=== PATIENT | female | born 1950 | race Two or more races ===

== ENCOUNTER 2020-03-23 13:42 | Emergency (ER) | payer MEDICARE, OTHER ==
--- NOTE | 2020-03-23 14:01 | ER Document Report ---
ED Animal Bite - General Chief Complaint: Dog Bite Stated Complaint: DOG BITE/RIGHT LEG Time Seen by Provider: 03/23/20 13:48 Mode of Arrival: Ambulatory Information source: Patient Notes: 70-year-old female presented to ED for dog bite to the back of the right knee. She states that happened about 1230. She states she was taking a walk when her dog were chasing a person on a bicycle and then attacked her and bit her on the back of the knee. She states she did call the animal control and they were going to try to locate the dog. She states the dog looked healthy but she does not know the dog and does not know if his shots are up-to-date. She states she did not want the rabies immunization vaccines at this time. She states she was going to see if the animal control could find the dog first before deciding to take the rabies immunizations vaccine. I did tell her she needed to make a decision within the next 24 hours to ensure she does not get sick if the dog is rapid. Patient verbalized understanding of this. She states her pain to the back of the knee is a 2 out of 5 and can rest things. There is break in the skin. There is no lacerations but more abrasions. She decided she was going to get the rabies vaccine because she did not know if they were going to locate the dog and then she spoke with someone from her family and they state they have videos of the dog and animal control is trying to find him so she will wait till tomorrow to decide if she wants the vaccines. Constitutional: Negative for fever. HENT: Negative for sore throat. Eyes: Negative for visual changes. Cardiovascular: Negative for chest pain. Respiratory: Negative for shortness of breath. Gastrointestinal: Negative for abdominal pain, vomiting or diarrhea. Genitourinary: Negative for dysuria. Musculoskeletal: Negative for back pain. Skin: Skin abrasions to the back of the right knee Neurological: Negative for headaches, weakness or numbness. 10 point ROS negative except as marked above and in HPI. VITAL SIGNS: Within normal limits. GENERAL: No acute distress, non-toxic appearance. HEAD: Normal with no signs of head trauma. EYES: PERRLA, EOMI, conjunctiva normal, no discharge. EARS: Hearing grossly intact. NOSE: Normal. THROAT: Oropharynx is normal. NECK: Normal range of motion, no tenderness, supple, no lymphadenopathy, No adenopathy, no JVD. CHEST: Clear breath sounds bilaterally. No wheezes, rales, or rhonchi. CARDIAC: Regular rate and rhythm. S1 and S2, without murmurs, gallops, or rubs. VASCULAR: No Edema. Peripheral pulses normal and equal in all extremities. ABDOMEN: Normal and soft with no tenderness, no masses or pulsatile masses. GASTROINTESTINAL: Bowel sounds normal GENITOURINARY: Normal, No tenderness LYMPATHTIC: No lymphadenopathy noted. MUSCULOSKELETAL: Good range of motion of all major joints. Extremities without clubbing, cyanosis or edema. NEUROLOGICAL: Alert and oriented x 3. No focal sensory or strength deficits. Speech normal. Follows commands appropriately. PSYCHIATRIC: Normal Affect, judgement and mood. SKIN: Skin abrasions to the back of the right knee - HPI Location of injury: Other - Neck of the right knee Severity of injury: Bitten Onset: Just prior to arrival Quality of pain: Achy Pain Level: 2 Context of attack: "Unprovoked" attack Type of animal: Dog Appearance of animal: Appeared well Animal's immunizations: Unknown Animal captured or known: No Animal control notified: Yes Animal control form completed: Yes - Related Data Allergies/Adverse Reactions: No Known Allergies Allergy (Verified 03/23/20 13:59) Past Medical History - General Information source: Patient - Social History Smoking Status: Never Smoker Frequency of alcohol use: Rare Drug Abuse: None Lives with: Family Family History: Reviewed & Not Pertinent Patient has suicidal ideation: No Patient has homicidal ideation: No - Past Medical History Cardiac Medical History: Reports: Hx Hypercholesterolemia, Hx Hypertension Pulmonary Medical History: Reports: None EENT Medical History: Reports: None Neurological Medical History: Reports: None Endocrine Medical History: Reports: Hx Hypothyroidism Renal/ Medical History: Reports: None Malignancy Medical History: Reports: None GI Medical History: Reports: None Musculoskeletal Medical History: Reports None Skin Medical History: Reports None Psychiatric Medical History: Reports: None Traumatic Medical History: Reports: None Infectious Medical History: Reports: None Surgical Hx: Negative Past Surgical History: Reports: None - Immunizations Immunizations up to date: Yes Hx Diphtheria, Pertussis, Tetanus Vaccination: Yes - 2019 Review of Systems - Review of Systems Female Genitourinary: No symptoms reported Physical Exam - Vital signs Vitals: Temp Pulse Resp BP Pulse Ox 98.6 F 80 20 152/106 H 100 03/23/20 13:47 03/23/20 13:47 03/23/20 13:47 03/23/20 13:47 03/23/20 13:47 Course - Re-evaluation Re-evalutation: 03/23/20 14:33 Patient elected to not get the rabies vaccine and immunization at this time. She stated she would check with animal control and be back within 24 hours if they did not capture the animal. Rabies were not started today. Patient was started on Augmentin and discharged home with prescription for Augmentin she was given instructions on care of the wound. - Vital Signs Vital signs: Temp Pulse Resp BP Pulse Ox 98.6 F 80 20 152/106 H 100 03/23/20 13:47 03/23/20 13:47 03/23/20 13:47 03/23/20 13:47 03/23/20 13:47 Discharge - Discharge Clinical Impression: Animal bite right posterior knee Condition: Stable Disposition: HOME, SELF-CARE Additional Instructions: Animal Bites Animal bites are often heavily contaminated with bacteria. In spite of thorough cleansing and proper treatment, these wounds frequently become infected. Bite wounds of the hands are especially prone to complications. Bites are dressed, if possible. Large wounds may require suturing after internal cleansing. Because of infection risk, some large wounds must remain unstitched. Your doctor is trained to advise you on the best treatment for your bite. Call the doctor at once if the wound becomes red, swollen, warm, increasingly painful, or if it begins to drain. Danger signs also include red streaks up the involved extremity, swollen glands in the groin or under the arm, or fever and chills. The risk of rabies from domestic animals is very low. Bats, sick animals, and wild animals may expose you to rabies. The physician, or the health department, will inform you if you will need to receive the rabies vaccine. SOAP CLEANSING: Gently wash the wound daily using a mild soap (like Ivory, Phisoderm, Neutrogena). Use warm water, rubbing gently until all debris, ooze, and crusting have been washed from the wound. Allow to dry briefly (about 10 minutes) after cleaning. Repeat this cleansing at least three times a day for the first two days and then once or twice a day. ANTIBIOTIC OINTMENT PROTECTION: Your wounds are such that dressing them is not practical or optional. After cleansing, you should apply a thin coating of antibiotic ointment (Bacitracin, not Neosporin) to the wounds at least three times daily. This lessens infection risk, and may decrease the amount of scarring. Use a q-tip or dull butter knife, not your finger, to apply this ointment. Any debris or ooze which builds up in the ointment should be gently rubbed off with a sterile gauze pad. Harder crusting may need to be gently scrubbed off with a clean wash cloth with soap and warm water, perhaps applying a warm, wet wash cloth to the wound for ten minutes first. Development of redness, severe itching, or blistering may mean allergy to the ointment. See the doctor. You have declined the rabies vaccinations at this time. You can always come back if animal control tells you that you need the rabies shots and we will start the immunizations per schedule. If they are not able to find the dog they will let you know whether to come back to get the immunizations or not. Please keep in touch with them so that you know where you are with the rabies immunizations. Augmentin Augmentin is a mixture of amoxicillin and clavulanate. Amoxicillin is a member of the penicillin family. It covers the germs likely to cause ear, bronchial, and urinary infections better than plain penicillin. The addition of clavulanate allows it to cover staph infections of the skin, as well as resist ant cases of ear and sinus infections. Your physician has chosen Augmentin for you because of the special nature of your situation. Augmentin is best taken with meals. Nausea after taking the medication is rare, but can occur. Diarrhea can occur, particularly in small children. Vaginal yeast infections, and oral thrush in infants are also common. Contact your physician if these problems occur. Allergy to penicillins is common. If you have had an allergic reaction to any drug of the penicillin family, you should never take any other penicillin. Notify your doctor at once if you develop hives, shortness of breath, swelling, or faintness. Acetaminophen Acetaminophen may be taken for pain relief or fever control. It's much safer than aspirin, offering a wider range of "safe" dosages. It is safe during . Some brand names are Tylenol, Panadol, Datril, Anacin 3, Tempra, and Liquiprin. Acetaminophen can be repeated every four hours. The following are maximum recommended dosages: WEIGHT Dose Drops Elixir Chewable(80mg) (LBS.) drprs=droppers tsp=teaspoon 6 40 mg .4 ml (1/2) 6-11 80 mg .8 ml (full) 1/2 tsp 1 tab 12-16 120 mg 1 1/2 drprs 3/4 tsp 1 1/2 tabs 17-23 160 mg 2 drprs 1 tsp 2 tabs 24-30 240 mg 3 drprs 1 1/2 tsp 3 tabs 30-35 320 mg 2 tsp 4 tabs 36-41 360 mg 2 1/4 tsp 4 1/2 tabs 42-47 400 mg 2 1/2 tsp 5 tabs 48-53 480 mg 3 tsp 6 tabs 54-59 520 mg 3 1/4 tsp 6 1/2 tabs 60-64 560 mg 3 1/2 tsp 7 tabs 65-70 600 mg 3 3/4 tsp 7 1/2 tabs 71-76 640 mg 4 tsp 8 tabs 77-82 720 mg 4 1/2 tsp 9 tabs 83-88 800 mg 5 tsp 10 tabs >89 pounds or adults 650 mg to 900 mg Acetaminophen can be repeated every four hours. Maximum daily dose not to exceed 4000 mg. These maximum recommended dosages are slightly higher than the dosages written on the product container, but these dosages are very safe and well below the toxic dosage for acetaminophen. Ibuprofen Ibuprofen is an excellent, safe drug for pain control. In addition, it has potent antiinflammatory effects which are beneficial, especially in the treatment of injuries, arthritis, or tendonitis. It's best to take ibuprofen with food. Persons with ulcer disease or allergy to aspirin should notify their physician of this before taking ibuprofen. Take the medication exactly as prescribed. Don't take additional doses unless instructed to do so by your doctor. If you develop wheezing, shortness o f breath, hives, faintness, stomach pain, vomiting, or dark black stools, return for re-evaluation at once. FOLLOW-UP CARE: If you have been referred to a physician for follow-up care, call the physicians office for an appointment as you were instructed or within the next two days. If you experience worsening or a significant change in your symptoms, notify the physician immediately or return to the Emergency Department at any time for re-evaluation. Prescriptions: Amoxicillin/Potassium Clav [Augmentin 875-125 Tablet] 1 tab PO BID #20 tab Forms: Elevated Blood Pressure
[2020-03-23] MEDS ORDERED: RABIES IMMUNE GLOBULIN INJ/PF 300 UNIT/ML VIAL IM ONE (14:25)
[2020-03-23] MEDS ORDERED: RABIES VACCINE (PCEC)/PF 2.5 UNIT/1 ML KIT IM ONE (14:25)
[2020-03-23 14:37] VITALS: BP 148/98
== END 2020-03-23 14:29 | disposition home or self-care (01) ==
LOC: ER 13:42
DX: S81.051A Open bite, right knee, initial encounter (principal); W54.0XXA Bitten by dog, initial encounter; E78.00 Pure hypercholesterolemia, unspecified; I10 Essential (primary) hypertension
CPT/HCPCS: 99283

== ENCOUNTER 2020-03-23 16:27 | Emergency (ER) | payer MEDICARE, OTHER ==
[2020-03-23] MEDS ORDERED: RABIES IMMUNE GLOBULIN INJ/PF 300 UNIT/ML VIAL IM ONE (16:50)
[2020-03-23] MEDS ORDERED: RABIES VACCINE (PCEC)/PF 2.5 UNIT/1 ML KIT IM ONE (16:50)
--- NOTE | 2020-03-23 16:53 | ER Document Report ---
HPI - HPI Patient complains to provider of: Rabies vaccination Time Seen by Provider: 03/23/20 16:48 Onset: This afternoon Onset/Duration: Sudden Context: Patient states she was seen here earlier after dog bite. Patient states that she has since decided that she would like to receive the rabies vaccination series given concerns about the dog that bit her. Patient was already prescribed antibiotics after the animal bite and her tetanus immunization is currently up-to-date. Associated Symptoms: Other - Dog bite to right leg Exacerbated by: Movement Relieved by: Denies Similar symptoms previously: No Recently seen / treated by doctor: Yes - ROS ROS below otherwise negative: Yes Systems Reviewed and Negative: Yes All other systems reviewed and negative - CONSTITUTIONAL Constitutional: DENIES: Fever, Chills - MUSCULOSKELETAL Musculoskeletal: REPORTS: Extremity pain - DERM Skin Color: Normal Skin Problems: Puncture Wound Past Medical History - General Information source: Patient - Social History Smoking Status: Never Smoker Occupation: None Family History: Reviewed & Not Pertinent - Past Medical History Cardiac Medical History: Reports: Hx Hypercholesterolemia, Hx Hypertension Endocrine Medical History: Reports: Hx Hypothyroidism Surgical Hx: Negative - Immunizations Immunizations up to date: Yes Hx Diphtheria, Pertussis, Tetanus Vaccination: Yes - 2019 Vertical Provider Document - CONSTITUTIONAL Agree With Documented VS: Yes Exam Limitations: No Limitations General Appearance: WD/WN, No Apparent Distress - HEENT HEENT: Atraumatic, Normocephalic - NECK Neck: Normal Inspection - RESPIRATORY Respiratory: No Respiratory Distress - CARDIOVASCULAR Pulses: Normal: Dorsalis pedis - MUSCULOSKELETAL/EXTREMETIES Musculoskeletal/Extremeties: MAEW - NEURO Level of Consciousness: Awake, Alert, Appropriate Motor/Sensory: No Motor Deficit - DERM Integumentary: Warm, Dry Notes: PW to r medial calf, no active bleeding Course - Re-evaluation Re-evalutation: 03/23/20 17:04 Patient states that she would like to receive the rabies vaccination series at this time. Patient was already here and received an updated tetanus and prescription for Augmentin. - Vital Signs Vital signs: Temp Pulse Resp BP Pulse Ox 97.3 F 90 17 145/88 H 98 03/23/20 16:38 03/23/20 16:38 03/23/20 16:38 03/23/20 16:38 03/23/20 16:38 Discharge - Discharge Clinical Impression: Rabies, need for prophylactic vaccination against Condition: Stable Disposition: HOME, SELF-CARE Instructions: Rabies Prophyllaxis ([facility]) Additional Instructions: Return immediately for any new or worsening symptoms Followup with your primary care provider, call tomorrow to make a followup appointment Return on March 26, and for repeat doses of the rabies vaccination to complete the series Referrals: STEFANO GALEANO MD [Primary Care Provider] - Follow up as needed
[2020-03-23 17:38] VITALS: BP 138/82
== END 2020-03-23 17:38 | disposition home or self-care (01) ==
LOC: ER 16:27
DX: Z20.3 Contact with and (suspected) exposure to rabies (principal); S81.851A Open bite, right lower leg, initial encounter; W54.0XXA Bitten by dog, initial encounter
CPT/HCPCS: 90375; 90471; 90472; 90675; 99283